=== PATIENT | female | born 1980 | race Caucasian/White ===

== ENCOUNTER 2021-06-04 13:15 | Emergency (ER) | payer OTHER ==
[~2021-06-04] VITALS: Ht 160 cm; Wt 52.2 kg
--- NOTE | 2021-06-04 13:15 | NUR ---
patient brought in via car by friends. Friend states suspected Overdose. patient is too altered to ambulate. patient brought in via wheelchair to room 1A. patient placed on monitor, ekg, IV started while ED is interviewing friend for further evaluation at bedside.
[2021-06-04] MEDS ORDERED: IV NORMAL SALINE 1000 ML BAG IV ONE ×2 (13:30→15:15)
[2021-06-04] MEDS ORDERED: BUPR-319 PO (13:43)
[2021-06-04] MEDS ORDERED: VALA500T34 PO (13:43)
[2021-06-04] MEDS ORDERED: ALPR0.5T PO (13:43)
[2021-06-04 13:47] LABS: HEMATOCRIT 37.7 % (31.2-41.9); MEAN CORPUSCULAR HEMOGLOBIN 31.4 uug (24.7-32.8); MEAN CORPUSCULAR VOLUME 92.5 fL (75.5-95.3); PLATELET COUNT (AUTO) 337 K/uL (179-408)
[2021-06-04 13:55] LABS: ACETAMINOPHEN 22.8 ug/mL (10-30); ALANINE AMINOTRANSFERASE 18 U/L (14-59); ALKALINE PHOSPHATASE 59 U/L (50-136); ASPARTATE AMINOTRANSFERASE 12 U/L (15-37); BILIRUBIN,DIRECT 0.1 mg/dL (0.0-0.2); BILIRUBIN,TOTAL 0.4 mg/dL (0.2-1.0); CARBON DIOXIDE 28 mmol/L (21-32); CHLORIDE 101 mmol/L (98-107); CREATININE 0.7 mg/dL (0.6-1.3); GLUCOSE 89 mg/dL (74-106); POTASSIUM 4.1 mmol/L (3.5-5.1); TOTAL PROTEIN, SERUM 7.4 g/dL (6.4-8.2); UREA NITROGEN, BLOOD 16 mg/dL (7-18)
--- NOTE | 2021-06-04 14:09 | NUR ---
LAB CALLED WILL NEED TO WAIT FOR BLOOD DELIVERY.
[2021-06-04 14:17] LABS: ETHANOL < 3 MG/DL (0-0)
--- NOTE | 2021-06-04 15:11 | NUR ---
CALLED CRISIS TEAM. SPOKE TO ART. WILL WAIT ON INTERVIEWING DUE TO PATIENT UNABLE TO ANSWER QUESTIONS IS TOO SLEEPY. DR KRUSE ORDERED ONE MORE LITER INFUSION. AFTER 1 LITER UNABLE TO GIVE URINE SAMPLE YET.
--- NOTE | 2021-06-04 15:14 | NUR ---
CALL CRISIS TEAM AGAIN ONCE PATIENT IS MORE AWAKE AND ABLE TO ANSWER QUESTIONS.
--- NOTE | 2021-06-04 17:48 | NUR ---
TRANSFERED PT TO [facility] IN STABLE CONDITION.
--- NOTE | 2021-06-04 19:26 | NUR ---
pt is very drowsy but able to state name and age. pt is here for drug overdose.
--- NOTE | 2021-06-04 19:46 | NUR ---
carlito pt's roomate is at the bedside. assisted the pt to remove her eye contact lenses. pt remains drowsy.
--- NOTE | 2021-06-04 21:03 | NUR ---
was able to send urine for drug screen and ua.
--- NOTE | 2021-06-04 21:04 | NUR ---
pts friend Juliet is at beside.
--- NOTE | 2021-06-04 21:05 | NUR ---
poison control Don at called for update on status of pt and requested tylenol and lft test.
[2021-06-04 21:10] LABS: *BILIRUBIN,URIN NEGATIVE (NEGATIVE); *BLOOD, URINE NEGATIVE (NEGATIVE); *CLARITY,URINE CLEAR (CLEAR); *COLOR,URINE YELLOW (YELLOW); *KETONES,URINE TRACE (NEGATIVE); *UROBILINOGEN,URINE 0.2 E.U./dl (NORMAL); LEUKOCYTE ESTERASE ,URINE NEGATIVE (NEGATIVE); NITRITE, URINE NEGATIVE (NEGATIVE); PH,URINE 5.5 (5.0-8.0); UGLUCOSE NEGATIVE (NEGATIVE)
[2021-06-04 21:20] LABS: *AMPHETAMINE, URINE NEGATIVE (NEGATIVE); *CANNABINOID, URINE NEGATIVE (NEGATIVE); *COCCAINE, URINE NEGATIVE (NEGATIVE); *OPIATE, URINE POSITIVE (NEGATIVE); *PHENCYCLIDINE SCREEN,URINE NEGATIVE (NEGATIVE)
--- NOTE | 2021-06-04 21:40 | NUR ---
spoke with Ginny from [facility] they are not able to accomdate the pt they state they do not have a sitter. I was informed they will continue looking for a facility.
--- NOTE | 2021-06-04 22:48 | NUR ---
Patient awake, able to answer question. Called Art Claricea from PET TEAM to eval patient.
--- NOTE | 2021-06-04 23:07 | NUR ---
iv was out of the vein, iv removed and placed a band aid. awaiting art from crisis team to arrive to evaluate the pt.
--- NOTE | 2021-06-04 23:21 | NUR ---
received a call from Ginny case reviewer at [facility] that she is on till midnight her number is [phone] and Iris is on after midnight [phone]. that [facility] will accept the pt and the accepting doctor is Dr. Yunior Stephenson. This doctor will call and speak with Dr. Huerta in the ER here.
--- NOTE | 2021-06-04 23:29 | NUR ---
Dr. Llanes has called to speak with MAURO Huerta.
--- NOTE | 2021-06-05 | NUR ---
João Meyer crisis leathersmith spoke with Dr. Huerta and is not at pt's bedside to speak with pt.
--- NOTE | 2021-06-05 01:00 | NUR ---
called to Cathie at [facility] at [phone] informed her that Art crisis news wire photo operator will send the pt home and there is no need for a placement.
--- NOTE | 2021-06-05 01:21 | NUR ---
Patient discharged to home in stable condition. Written and verbal after care instructions given. Patient verbalizes understanding of instructions. Stressed follow up or return to ER for worsening s/s.
[2021-06-05 01:22] VITALS: BP 107/67
== END 2021-06-05 01:22 | disposition home or self-care (01) ==
LOC: ER 13:15
DX: T42.4X2A Poisoning by benzodiazepines, intentional self-harm, initial encounter (principal); T40.2X2A Poisoning by other opioids, intentional self-harm, initial encounter; R40.0 Somnolence; Y92.019 Unspecified place in single-family (private) house as the place of occurrence of the external cause; R45.851 Suicidal ideations; F32.A Depression, unspecified; F41.9 Anxiety disorder, unspecified; Z20.822 Contact with and (suspected) exposure to COVID-19
CPT/HCPCS: 36415; 85025; 93005; A4663; G0480